=== PATIENT | female | born 1970 | race Caucasian/White ===

== ENCOUNTER → 2017-01-08 | Emergency (ER) | payer OTHER, BC ==
[~2017-01-08] VITALS: Ht 157.5 cm; Wt 109.8 kg
[~2017-01-08] MED LIST: DAILY MULTIPLE1 EACH PO; DILAUDID2 MG PO; ENDOCET 5-3251 EACH PO; FISH OIL 1,0001 EAC7 PO; FLEXERIL10 MG PO; GLIMEPIRIDE2 MG PO; IBUPROFEN400 MG PO; JANUVIA100 MG PO; LEVEMIR FL100 UNIT/1 SC; LOSARTAN POTAS100 MG PO; LYRICA75 MG PO; MOTRIN600 MG PO; MOTRIN800 MG PO; VALIUM5 MG PO
[2017-01-08 18:57] VITALS: BP 108/87
== END | disposition home or self-care (01) ==
LOC: EME 18:07
DX: S80.12XA Contusion of left lower leg, initial encounter (principal); S80.212A Abrasion, left knee, initial encounter; V89.2XXA Person injured in unspecified motor-vehicle accident, traffic, initial encounter; Y92.410 Unspecified street and highway as the place of occurrence of the external cause; M54.30 Sciatica, unspecified side; Z87.891 Personal history of nicotine dependence
CPT/HCPCS: 73564; 73610; 99281; 99284